=== PATIENT | male | born 2000 | race Asian ===

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

== ENCOUNTER 2022-05-14 19:53 | Emergency (ER) | payer OTHER ==
[2022-05-14 20:01] VITALS: BP 126/75; PULSE 90; TEMP 98.7; BMI 19.2
[2022-05-14] MEDS ORDERED: DIPHTH,PERTUSS(ACELL),TET 0.5 ML DISP.SYRIN IM ONE ×2 (20:50→20:59)
== END 2022-05-14 21:32 | disposition home or self-care (01) ==
LOC: JERFT 19:53
PROC: 09Q1XZZ Repair Left External Ear, External Approach (ICD-10-PCS; principal; 2022-05-14)
PROC: 3E0234Z Introduction of Serum, Toxoid and Vaccine into Muscle, Percutaneous Approach (ICD-10-PCS; 2022-05-14)
DX: S09.90XA Unspecified injury of head, initial encounter (principal); S01.312A Laceration without foreign body of left ear, initial encounter; W22.8XXA Striking against or struck by other objects, initial encounter
CPT/HCPCS: 70450-TC; 90715; 99284-25

== ENCOUNTER 2022-05-20 19:06 | Emergency (ER) | payer OTHER ==
[2022-05-20 19:49] VITALS: BP 119/79; PULSE 78; TEMP 99.1; BMI 20.1
[2022-05-20 22:29] LABS: BASO % 0.7 % (0-2.0); EOS % 4.2 % (0-4.5); HEMATOCRIT 43.7 % (35.4-49); HEMOGLOBIN 15.2 GM/dL (11.7-16.9); LYMPH % 32.3 % (8-40); MCH 32.6 pg (25.7-33.7); MCHC 34.7 g/dl (32.0-35.9); MEAN CELL VOLUME 93.9 fl (80-96); MEAN PLT VOLUME 7.1 fl (7.5-11.1); MONO % 9.2 % (3.8-10.2); NEUT % 53.6 % (42.8-82.8); PLATELET COUNT 315 10^3/uL (134-434); RBC 4.66 M/mm3 (4.00-5.60); RDW 13.7 % (11.9-15.9); WHITE BLOOD COUNT 5.7 K/mm3 (4.0-10.0)
[2022-05-20 22:54] LABS: CHLORIDE 104 mmol/L (98-107); SODIUM 140 mmol/L (136-145)
[2022-05-20 22:56] LABS: ALBUMIN 4.4 g/dl (3.4-5.0); ANION GAP 8 MMOL/L (8-16); BLOOD UREA NITROGEN 9.2 mg/dL (7-18); CALCIUM 9.3 mg/dL (8.5-10.1); CO2 29 mmol/L (21-32); GLUCOSE,RANDOM 88 mg/dL (74-106)
[2022-05-20 22:59] LABS: CREATININE 0.8 mg/dL (0.55-1.3); SGOT/AST 79 U/L (15-37); SGPT/ALT 94 U/L (13-61)
[2022-05-20 23:01] LABS: BILIRUBIN,TOTAL 0.7 mg/dL (0.2-1); TOT PROT 8.2 g/dl (6.4-8.2)
[2022-05-20 23:02] LABS: ALK PHOS 101 U/L (45-117)
[2022-05-21 00:14] LABS: COCAINE, UR NEGATIVE (NEGATIVE); METHADONE, UR NEGATIVE (NEGATIVE); URINE BARBITURATES NEGATIVE (NEGATIVE)
[2022-05-21 00:15] LABS: URINE AMPHETAMINES NEGATIVE (NEGATIVE)
[2022-05-21 00:17] LABS: OPIATES, URI NEGATIVE (NEGATIVE); PHENCYCLIDINE,URINE NEGATIVE (NEGATIVE); URINE BENZODIAZEPINES POSITIVE (NEGATIVE)
== END 2022-05-21 00:25 | disposition home or self-care (01) ==
LOC: JER 19:06
DX: G40.89 Other seizures (principal)
CPT/HCPCS: 36415; 80053; 80307; 85025; 99283-25

== ENCOUNTER 2022-05-21 13:44 | Emergency (ER) | payer OTHER ==
[2022-05-21 14:43] VITALS: BP 128/79; PULSE 83; TEMP 98.6; BMI 20.1
== END 2022-05-21 16:53 | disposition home or self-care (01) ==
LOC: JERFT 13:44
DX: Z48.02 Encounter for removal of sutures (principal)
CPT/HCPCS: 99281-25